=== PATIENT | male | born 1960 | race Caucasian/White ===

== ENCOUNTER → 2022-05-01 | Day surgery (SDC) | payer BC ==
[~2022-05-01] MED LIST: Flumazenil 0.1 MG/ML 10 ML MDV ONE; Ketamine 200 MG/20 ML MDV ONE; Midazolam 1 MG/ML 2 ML SDV ONE; Propofol 200 MG/20 ML SDV ONE; fentaNYL 50 MCG/ML SDV ONE
[2022-05-01] MEDS: Lactated Ringers 1,000 ML IV SCH (11:13)
[2022-05-01 15:17] VITALS: BP 140/81; PULSE 52
== END ==
LOC: CC.SDS 10:21
PROVIDERS: ATTEND Family Medicine
DX: Z12.11 Encounter for screening for malignant neoplasm of colon (principal); K21.00 Gastro-esophageal reflux disease with esophagitis, without bleeding; K57.30 Diverticulosis of large intestine without perforation or abscess without bleeding; K31.7 Polyp of stomach and duodenum; M19.90 Unspecified osteoarthritis, unspecified site; N40.0 Benign prostatic hyperplasia without lower urinary tract symptoms; E78.5 Hyperlipidemia, unspecified; Z79.899 Other long term (current) drug therapy; Z79.82 Long term (current) use of aspirin; Z98.890 Other specified postprocedural states
CPT/HCPCS: 00813; 87081; J2250; J2704; J3010; J3490; J7120